=== PATIENT | female | born 1990 | race African-American/Black ===

== ENCOUNTER 2020-11-19 00:28 | Inpatient (IN) | payer MEDICAID, OTHER, SELFPAY ==
[2020-11-19 05:31] VITALS: BMI 24.3
[2020-11-19 06:17] LABS: Fetal Membranes Rupture No Membranes Rupture (No Rupture)
[2020-11-19] MEDS ORDERED: hydrALAZINE 20 MG/ML VIAL SLOW IVP PRN (07:51)
[2020-11-19 08:57] LABS: #Basophils 0.1 10x3/uL (0.0-0.2); #Eosinphils 0.3 10x3/uL (0.0-0.5); #Monocytes 0.9 10x3/uL (0.0-1.1); #Neutrophils 7.9 10x3/uL (1.5-8.4); %Basophils 0.5 % (0.0-2.0); %Eosinophils 2.8 % (0.0-6.0); %Lymphocytes 24.9 % (18.0-47.0); %Monocytes 6.9 % (0.0-10.0); %Neutrophils 64.6 % (40.0-75.0); Hemoglobin 7.6 g/dL (12.0-15.5); Mean Corpuscular HGB CONC 30.4 g/dL (32.0-36.0); Mean Corpuscular Hemoglobin 20.9 pg (27.0-33.0); Mean Corpuscular Volume 68.9 fl (81.6-98.3); Mean Platelet Volume 9.8 fl (7.4-10.4); Platelet Count 375 10x3/uL (150-450); RBC Distribution Width 16.2 % (11.5-14.5); Red Blood Cell (RBC) Count 3.63 10x6/uL (3.90-5.03); White Blood Cell (WBC) Count 12.3 10x3/uL (3.5-10.5)
[2020-11-19] MEDS ORDERED: metroNIDAZOLE 500 MG TAB PO SCH (09:30)
[2020-11-19 09:51] LABS: Microcytosis MODERATE=15-30 cells (100X) (0-5/hpf)
[2020-11-19 09:52] LABS: Hypochromia SLIGHT = 6-15 cells (100X) (0-5/hpf); Ovalocytes SLIGHT = 2-5 cells (100X) (0-1/hpf); Platelet Morphology Comment Appears Adequate
[2020-11-19] MEDS ORDERED: Dextrose 5% in Water 1,000 ML IV PRN (12:21)
[2020-11-19] MEDS ORDERED: HumaLOG 300 UNITS/3 ML VIAL SC PRN (12:21)
[2020-11-19] MEDS ORDERED: Dextrose 50% Abboject 50 ML SYRINGE SLOW IVP PRN (12:21)
[2020-11-19] MEDS ORDERED: HumaLOG 300 UNITS/3 ML VIAL SC SCH (17:00)
[2020-11-19] MEDS ORDERED: Lantus 1000 UNITS/10 ML VIAL SC SCH (21:00)
[2020-11-19 21:30] VITALS: TEMP 98.6
[2020-11-19] MEDS ORDERED: Acetaminophen 500 MG TAB PO PRN (21:46)
[2020-11-19] MEDS: metroNIDAZOLE 500 MG TAB PO SCH (21:55)
[2020-11-20] MEDS: HumaLOG 300 UNITS/3 ML VIAL SC SCH ×3 (07:55→17:27)
[2020-11-20] MEDS ORDERED: Lantus 1000 UNITS/10 ML VIAL SC SCH (09:00)
[2020-11-20] MEDS: metroNIDAZOLE 500 MG TAB PO SCH (09:33)
== END 2020-11-20 19:23 | disposition home or self-care (01) | DRG 831 ==
LOC: CSHERS 00:28 → CSHLD/OP 05:02 → CSHLD 09:51
PROVIDERS: ADMIT Obstetrics & Gynecology; ATTEND Obstetrics & Gynecology
PROC: 30233N1 Transfusion of Nonautologous Red Blood Cells into Peripheral Vein, Percutaneous Approach (ICD-10-PCS; principal; 2020-11-19)
DX: O42.012 Preterm premature rupture of membranes, onset of labor within 24 hours of rupture, second trimester (principal); O44.12 Complete placenta previa with hemorrhage, second trimester; O24.012 Pre-existing type 1 diabetes mellitus, in pregnancy, second trimester; Z3A.18 18 weeks gestation of pregnancy; Z87.891 Personal history of nicotine dependence; E10.9 Type 1 diabetes mellitus without complications
CPT/HCPCS: 36415; 36416; 36430; 76815; 84112; 85025; 86850; 86870; 86900; 86901; 86905; 86922; 87480; 87510; 87660; 99285; J1815; P9016